=== PATIENT | male | born 1975 | race Native Hawaiian/Other Pacific Islander ===

== ENCOUNTER 2017-11-09 17:49 | Outpatient (CLI) | payer OTHER | END 2017-11-09 17:53 | disposition short-term general hospital (02) | LOC: AMB 17:49 | DX: R40.20 Unspecified coma (principal); F10.129 Alcohol abuse with intoxication, unspecified | CPT/HCPCS: A0425; A0427 ==

== ENCOUNTER 2017-11-09 17:57 | Emergency (ER) | payer OTHER ==
[~2017-11-09] VITALS: Ht 172.7 cm; Wt 74.8 kg
[2017-11-09 18:02] VITALS: TEMP 97.9
[2017-11-09 18:47] VITALS: BP 160/88
== END 2017-11-09 18:50 | disposition home or self-care (01) ==
LOC: ED 17:57
DX: F10.129 Alcohol abuse with intoxication, unspecified (principal)
CPT/HCPCS: 99281